=== PATIENT | male | born 1950 | race African-American/Black ===

== ENCOUNTER 2017-06-01 23:56 | Emergency (ER) | payer OTHER, MEDICARE ==
[~2017-06-01] VITALS: Ht 170.2 cm; Wt 85.0 kg
[~2017-06-01 23:56] MED LIST: ALPH0.15 EACH EYE; ASPI81 PO; B-1210005 PO; D31000CA PO; DOCU100T9 PO; FISH100020 PO; METO50TA PO; PRAV40TA2 PO; PROT40TA PO; TRAZ50TA78 PO; XALA0.00 EACH EYE
[2017-06-02 00:04] VITALS: BP 159/78; PULSE 61; RESP 18; TEMP 98.1; O2SAT 100
[2017-06-02] MEDS ORDERED: METO25TA3 PO ×2 (00:09)
[2017-06-02] MEDS ORDERED: ASPI325T PO ×2 (00:09)
[2017-06-02] MEDS ORDERED: ASPI-110 PO ×2 (00:09)
[2017-06-02] MEDS ORDERED: TRAZ1TAB45 PO ×2 (00:11)
[2017-06-02] MEDS ORDERED: PRAV40TA2 PO ×2 (00:11)
[2017-06-02] MEDS ORDERED: LATA0.002 EACH EYE ×2 (00:11)
[2017-06-02] MEDS ORDERED: DOCU100C PO ×2 (00:12)
[2017-06-02] MEDS ORDERED: CYAN100025 SL ×2 (00:13)
[2017-06-02] MEDS ORDERED: CHOL1CAP14 PO ×2 (00:13)
[2017-06-02] MEDS ORDERED: BRIM.15%O EACH EYE ×2 (00:14)
[2017-06-02] MEDS ORDERED: ORPHENADRINE INJ 60 MG/2 ML AMP IM ONE ×2 (02:00)
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
[2017-06-02] MEDS ORDERED: CYCL5TAB PO ×2 (03:18)
[2017-06-02] MEDS ORDERED: NAPR500T PO ×2 (03:18)
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
== END 2017-06-02 04:50 | disposition home or self-care (01) ==
LOC: NEPE 23:56
DX: S33.5XXA Sprain of ligaments of lumbar spine, initial encounter (principal); M54.2 Cervicalgia; V18.4XXA Pedal cycle driver injured in noncollision transport accident in traffic accident, initial encounter; Y93.55 Activity, bike riding
CPT/HCPCS: 70450; 72072; 72100; 72125; 96372; 99284; J2360